=== PATIENT | male | born 1940 | race Caucasian/White ===

== ENCOUNTER 2020-03-12 10:42 | Emergency (ER) | payer OTHER ==
[~2020-03-12] VITALS: Ht 172.7 cm; Wt 79.4 kg
[2020-03-12 11:08] LABS: ABSOLUTE NEUTROPHILS 3.8 thou/uL (1.4-8.2); BASOPHILS 1.4 % (0.0-2.0); EOSINOPHILS 3.3 % (0.0-3.0); HEMATOCRIT 35.5 % (42.0-52.0); HEMOGLOBIN 12.3 gm/dL (14.0-18.0); LYMPHOCYTES 16.8 % (24.0-44.0); MCH 35.4 pg (26.0-34.0); MCHC 34.6 g/dL (28.0-37.0); MCV 102.2 fL (80.0-100.0); MONOCYTES 6.3 % (1.0-8.0); PLATELET COUNT 202 thou/uL (150-400); POLYS 72.2 % (36.0-66.0); RBC 3.48 mil/uL (4.50-6.00); RDW 15.3 % (10.5-14.5); WBC 5.2 thou/uL (4.0-11.0)
[2020-03-12 11:20] LABS: ANION GAP 15 mmol/L (7-16); BUN 8 mg/dL (7-18); CHLORIDE 98 mmol/L (98-107); CO2 24 mmol/L (21-32); GLUCOSE 89 mg/dL (74-106); POTASSIUM 3.2 mmol/L (3.5-5.1); SODIUM 137 mmol/L (136-145)
[2020-03-12 11:30] LABS: ALBUMIN 2.7 g/dL (3.4-5.0); SGOT 78 U/L (15-37); SGPT 30 U/L (30-65); TROPONIN-I <0.06 ng/mL (<0.06)
[2020-03-12 11:44] LABS: URINE BILIRUBIN NEGATIVE (Negative); URINE BLOOD NEGATIVE (Negative); URINE CLARITY CLEAR; URINE COLOR YELLOW; URINE GLUCOSE-RANDOM* NEGATIVE (Negative); URINE KETONES NEGATIVE (Negative); URINE LEUKOCYTES-REFLEX NEGATIVE (Negative); URINE NITRITE-REFLEX NEGATIVE (Negative); URINE PROTEIN (DIPSTICK) NEGATIVE (Negative); URINE SPECIFIC GRAVITY 1.015 (1.005-1.035); URINE UROBILINOGEN 0.2 E.U./dl (0.2-1.0)
--- NOTE | 2020-03-12 12:13 | EKG ---
[facility] [place] [address] ELECTROCARDIOGRAM REPORT Name: RADHA NEGRETE Room #: [facility] M.R.#: [id number] Admission: Attend Phys: Discharge: Date of : 38 Report #: [id number] THIS REPORT FOR: cc: Andry Ku MD [facility] ~ THIS REPORT FOR: //name// [facility] ED Test Date: 2020-03-12 Test Time: 11:01:03 Pat Name: RADHA NEGRETE Department: Room: Gender: Ham Curer: Ambar : 1940 Requested By: Shorty Hogan Order Number: [id number] : Andry Ku Measurements Intervals [place] Rate: 90 P: 14 VA: 114 QRS: 17 QRSD: 92 T: 26 QT: 389 QTc: 476 Interpretive Statements Sinus rhythm Borderline short VA interval Borderline prolonged QT interval Baseline wander in lead(s) I No previous ECG available for comparison Electronically Signed On 03-12-2020 12:12:46 PUBLIC HEALTH NURSE by Andry Ku [email or web address] <ELECTRONICALLY SIGNED> By: Andry Ku MD, FACC 03/12/20 1212 1101 1101 Andry Ku MD, FACC /EPI
[2020-03-12 12:50] LABS: BE(vivo) 0.4 mmol/L (-2 to +3); HCO3 22.8 mmol/L (22.0-26.0); PO2 73.8 mmHg (80.0-100.0); pH 7.498 (7.360-7.450); sO2 96.1 % (92.0-98.0)
[2020-03-12] MEDS ORDERED: KLOR-CON20 ME1 PO (15:58)
[2020-03-12] MEDS ORDERED: ATIVAN0.5 M1 PO (15:58)
[2020-03-12 16:29] VITALS: BP 125/74
== END 2020-03-12 16:29 | disposition home or self-care (01) ==
LOC: ER 10:42
PROVIDERS: Physician Assistant
DX: E87.6 Hypokalemia (principal); E83.42 Hypomagnesemia; F43.22 Adjustment disorder with anxiety; R06.02 Shortness of breath; R42 Dizziness and giddiness; Z20.828 Contact with and (suspected) exposure to other viral communicable diseases